=== PATIENT | female | born 1935 | race Caucasian/White ===

== ENCOUNTER 2017-02-19 13:31 | Inpatient (IN) | payer OTHER ==
[~2017-02-19] VITALS: Ht 165.1 cm; Wt 73.1 kg
--- NOTE | ~2017-02-19 | 2DMMODE ---
[facility] [address] [place] [address] 2 D/M-MODE ECHOCARDIOGRAM Name: DONOVAN SAMUEL Room #: 206-P ADM IN M.R.#: [id number] Admission: 02/19/17 Attend Phys: Roney Livingston, Discharge: Date of : 33 Date of Service: 02/20/17 1426 Report #: [id number] THIS REPORT FOR: //name// APPROVED REPORT Study performed: 02/20/2017 12:53:57 EXAM: Comprehensive 2D, Doppler, and color-flow Echocardiogram Patient Location: Bedside Room #: 206 Status: routine BSA: 1.75 HR: 71 bpm BP: 114/68 mmHg Rhythm: Pacemaker/Irregular Other Information Study Quality: Excellent Indications Pre-Op CABG. Hx: [place] stent, pacemaker. 2D Dimensions RVDd: 36.93 mm LVEF(%): 52.07 (>50%) IVSd: 1.20 (7-11mm) LVOT Diam: 19.65 (18-24mm) LVDd: 45.20 mm PWd: 1.20 (7-11mm) LVDs: 33.20 (25-40mm) Aortic Root: 29.32 mm Kim's LVEF: 52.07 % Volumes Left Atrial Volume (Systole) Single Plane 4CH: 44.43 mL Single Plane 2CH: 55.65 mL LA ESV Index: 31.00 mL/m2 Aortic Valve AoV Peak Ashvin.: 2.67 m/s AO Peak Gr.: 28.58 mmHg LVOT Max P.40 mmHg AO Mean Gr.: 16.16 mmHg AO V2 Mean: 1.94 m/s LVOT Max V: 1.16 m/s AO V2 VTI: 53.69 cm MARINE Vmax: 1.32 cm2 Mitral Valve [facility] [place] [address] 2 D/M-MODE ECHOCARDIOGRAM Name: DONOVAN SAMUEL Room #: 206-P [facility] IN M.R.#: [id number] Admission: 02/19/17 Attend Phys: Roney Livingston, Discharge: Date of : 33 Date of Service: 02/20/17 1426 Report #: [id number] E/A Ratio: 0.8 MV Decel. Time: 252.42 ms MV E Max Ashvin.: 0.92 m/s MV A Ashvin.: 1.10 m/s MV PHT: 73.20 ms IVRT: 124.57 ms Pulmonary Valve PV Peak Ashvin.: 0.98 m/s PV Peak Gr.: 3.86 mmHg Pulmonary Vein P Vein S: 0.59 m/s P Vein A: 0.29 m/s P Vein D: 0.50 m/s P Vein A Dur.: 106.1 msec P Vein S/D Ratio: 1.18 Tricuspid Valve TR Peak Ashvin.: 2.40 m/s RAP Estimate: 5.00 mmHg TR Peak Gr.: 23.10 mmHg PA Pressure: 28.00 mmHg Left Ventricle The left ventricle is normal size. moderate hypokinesis noted of the distal anteroseptal wall and apex Mild concentric left ventricular hypertrophy. Left ventricular systolic function is mildly decreased. LVEF is 45-50%. Mild diastolic dysfunction is present (impaired relaxation pattern). Right Ventricle The right ventricle is normal size. The right ventricular systolic function is normal. Pacemaker lead is present in the right ventricle. Atria Left atrium is mildly dilated. The right atrium size is normal. Aortic Valve Aortic valve is calcified. No aortic regurgitation is present. There is mild valvular aortic stenosis. Calculated aortic valve area is 1.4 cm2 with maximum pressure gradient 29 mmg Mitral Valve Mitral valve leaflets are mildly thickened. Moderate mitral annular calcification. Mild mitral regurgitation. No evidence of mitral valve stenosis. Tricuspid Valve [facility] [address] [place] [address] 2 D/M-MODE ECHOCARDIOGRAM Name: DONOVAN SAMUEL ANN Room #: 206-P [facility] IN M.R.#: [id number] Admission: 02/19/17 Attend Phys: Roney Livingston, Discharge: Date of : 33 Date of Service: 02/20/17 1426 Report #: [id number] The tricuspid valve is normal in structure. Mild to moderate tricuspid regurgitation. Estimated PAP is 28mmHg. Pulmonic Valve The pulmonary valve is normal in structure. Trace pulmonic regurgitation. Great Vessels The aortic root is normal in size. The ascending aorta is normal in size. IVC is normal in size and collapses >50% with inspiration. Pericardium There is no pericardial effusion. <Conclusion> LVEF is 45-50%. moderate hypokinesis noted of the distal anteroseptal wall and apex Left atrium is mildly dilated. . Calculated aortic valve area is 1.4 cm2 with maximum pressure gradient of 29 mmHg Mild aortic stenosis. Mild mitral regurgitation. <ELECTRONICALLY SIGNED> By: Anup Cohn MD, FACC 02/20/17 1426 142 142 Anup Cohn MD, FACC /INF
--- NOTE | ~2017-02-19 | EKG ---
[address] [address] ELECTROCARDIOGRAM REPORT Name: DONOVAN SAMUEL Room #: 241-P ADM IN M.R.#: [id number] Admission: 02/19/17 Attend Phys: Roney Livingston DO Discharge: Date of : 34 Report #: [id number] THIS REPORT FOR: //name// [facility] Test Date: 2017-02-21 Test Time: 13:12:07 Pat Name: DONOVAN SAMUEL Department: Room: 241 P Gender: F Architectural Model Maker: kiley : 1935 Requested By: Jacey Rivas Order Number: [id number] MD: Alexis Martin Measurements Intervals [place] Rate: 80 P: 75 [place]: 161 QRS: -85 QRSD: 158 T: 94 QT: 450 QTc: 520 Interpretive Statements Atrial-ventricular dual-paced rhythm No further analysis attempted due to paced rhythm Compared to ECG 02/19/2017 13:38:14 Atrial-sensed ventricular-paced complex(es) or rhythm no longer present Electronically Signed On 02-21-2017 13:36:13 COAL UNLOADER by Alexis Martin [email or web address] <ELECTRONICALLY SIGNED> By: Alexis Martin MD 02/21/17 1336 1312 1312 Alexis Martin MD /EPI
--- NOTE | ~2017-02-19 | HC ---
[facility] [place] [address] CONSULTATION Name: DONOVAN SAMUEL ANN Room #: 241-P ADM IN M.R.#: [id number] Admission: 02/19/17 Attend Phys: Roney Livingston DO Discharge: Date of : 34 Report #: [id number] THIS REPORT FOR: //name// CC: Roney Brambila MD DATE OF SERVICE: 02/20/2017 HISTORY OF PRESENT ILLNESS: The patient is an 81-year-old single white female who came to the emergency room last night complaining of chest pain. The patient apparently presented in 1999 with chest pain. She states she had a coronary stent placed in the [place], [place] after a myocardial infarction. She has done well since that time. Her last stress test was several years ago. In 2009, she had a dizzy spell. 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 She eventually underwent implantation of a pacemaker in 2009. I last saw her in the cardiology clinic apparently several months ago. She stays fairly active including bowling twice a week. For the past month, she has been having intermittent chest pressure. It is usually related to activity. Occasionally, it occurs at rest. It last up to half an hour. It can make her diaphoretic, goes down her arms. Yesterday, she had a brief episode of chest discomfort in the morning. Her family convinced her to come to the hospital. After she got here last night, she went to x-ray. There she had an episode of chest heaviness last about a half an hour, relieved with nitroglycerin. I was asked to see her for further evaluation and treatment. She denies exertional dyspnea, palpitations, syncope, fever, cough or bleeding. PAST MEDICAL HISTORY: Otherwise significant for appendectomy. She has a history of hyperlipidemia. MEDICATIONS: Include aspirin, lisinopril, and Zocor. ALLERGIES: To PENICILLIN. FAMILY HISTORY: Positive for heart disease. SOCIAL HISTORY: She is , lives in [place] by herself. Quit smoking years ago. No alcohol abuse. REVIEW OF SYSTEMS: She has had no history of stroke, asthma, peptic ulcer disease, liver disease, kidney disease, cancer, psychiatric illness, or chronic skin condition. PHYSICAL EXAMINATION: GENERAL: Revealed an elderly female who appeared in no distress. VITAL SIGNS: She had a blood pressure 140/70, pulse was 70. She was afebrile. [address] [address] CONSULTATION Name: DONOVAN SAMUEL Room #: 241-P [facility] IN ..#: [id number] Admission: 02/19/17 Attend Phys: Roney Livingston DO Discharge: Date of : 34 Report #: [id number] HEENT: She was anicteric, conjunctivae are pink. Mucous membranes are moist. NECK: Veins nondistended. Bilateral carotid bruits were heard. CHEST: Clear to auscultation. HEART: Regular rate and rhythm. No murmur. ABDOMEN: Soft, nontender. EXTREMITIES: Had no edema. Posterior tibial pulse 1+ bilaterally. SKIN: Cool and dry. ECG shows P-wave sensing and ventricular capture. Her workup last night in the emergency room, she had a chest x-ray that showed normal heart size. There was a density suggestive of a nipple artifact. She actually had a CT scan of the chest using a PE protocol last night that showed no pulmonary embolus, coronary calcifications or cardiomegaly. Her lab work, sodium 141, BUN 16, creatinine 0.7, glucose 114. Her troponin on admission was 0.69, this morning it is 1.96. Cholesterol 166, triglyceride 65, HDL 90, LDL 63. Her white blood cell count 10.1, and hemoglobin 16.8. IMPRESSION AND RECOMMENDATIONS: 1. Non-ST elevation myocardial infarction. Previous stent. Recommend cardiac catheterization. 2. Previous pacemaker insertion. 3. Hyperlipidemia. The patient is on a statin drug. 4. Previous tobacco abuse. 5. Carotid bruit. Previous Doppler apparently showed a mild stenosis. <ELECTRONICALLY SIGNED> By: Anup Cohn MD, [facility] 02/21/17 1444 0753 1116 Anup Cohn MD, FACC /nt
--- NOTE | ~2017-02-19 | O ---
[facility] [place] [address] OPERATIVE REPORT Name: DONOVAN SAMUEL ANN Room #: 241-P ADM IN M.R.#: [id number] Admission: 02/19/17 Attend Phys: Roney Livingston DO Discharge: Date of : 34 Report #: [id number] THIS REPORT FOR: //name// CC: Roney Brambila DATE OF SERVICE: 02/21/2017 PREOPERATIVE DIAGNOSES: 1. Coronary artery disease. 2. Non-ST segment elevation myocardial infarction. 3. Mildly decreased left ventricular systolic function. FINAL DIAGNOSES: 1. Coronary artery disease. 2. Non-ST segment elevation myocardial infarction. 3. Mildly decreased left ventricular systolic function. OPERATIVE PROCEDURE PERFORMED: 1. Coronary artery bypass grafting x 3 with left internal mammary artery to the LAD, radial artery graft to OM and saphenous vein graft to PDA. 2. Left radial artery harvest. SURGEON: Olivier Germain MD. FACIAL OPERATOR: UZAIR Pagan. ANESTHESIA: General. OPERATIVE INDICATIONS: The patient is an 81-year-old female with known history of coronary artery disease with prior stenting performed up in [place] in the distant past. She has now presented with recent history of exertional dyspnea who was admitted to the Emergency Room recently and found to have evidence of non-ST segment elevation NE. The patient has undergone evaluation showing evidence of a critical distal left main coronary artery stenosis as well as right coronary artery disease. She was brought to the operating room now for coronary artery bypass grafting after informed consent has been obtained. Preoperative echo showed EF approximately 40%-45%. DESCRIPTION OF PROCEDURE: The patient was brought in the operative room and placed on the OR table in supine position. After anesthesia was induced via the general endotracheal route and monitoring lines have been positioned, the patient was prepped and draped in sterile fashion with chlorhexidine. I first harvested radial artery from the left forearm using a Harmonic scalpel. Concomitantly, saphenous vein was harvested from left lower extremity using endoscopic techniques. I then performed a median sternotomy incision, left [facility] [address] [place] [address] OPERATIVE REPORT Name: DONOVAN SAMUEL Room #: 241-P [facility] IN M.R.#: [id number] Admission: 02/19/17 Attend Phys: Roney Livingston DO Discharge: Date of : 34 Report #: [id number] internal mammary artery was harvested in standard fashion. We opened the pericardium and systemically anticoagulated the patient with heparin. Cannulae were placed in ascending aorta and the right atrium. An antegrade cardioplegic cannula was positioned and cardiopulmonary bypass was begun. We attempted placement of a retrograde cardioplegic cannula; however, this was unsuccessful. Under low flow conditions, the aorta was crossclamped, the heart was arrested with approximately 1200 mL cold antegrade cardioplegia. This was augmented with topical ice slush. Diastolic arrest was achieved and maintained throughout this operation with intermittent dose of cold antegrade cardioplegia as well as topical ice slush. We first opened up the OM vessel, calcified vessel. We were able to find the soft spot. A distal anastomosis was carried out in end-to-side fashion with 7-0 Prolene utilizing a radial artery. We placed a little BioGlue on this site due to the tenuous nature of this anastomosis. The radial artery was brought around and was anastomosed to the ascending aorta with 7-0 Prolene after a 4.8 punch aortotomy was created. Next, we addressed the right coronary artery system. We found the right coronary artery to be completely calcified down to the bifurcation. We opened the proximal PDA. This was a good size vessel about 2 mm in size. The anastomosis was carried out in end-to-side fashion with 7-0 Prolene utilizing reverse saphenous vein graft. The vein graft was brought up to the ascending aorta, measured and cut and anastomosed to the aorta with a 6-0 Prolene after 4.8 punch aortotomy was created. Lastly, the JULIANA was brought onto the field. We dissected the LAD. We found a soft spot distally as the rest of the LAD was very calcified and unapproachable. Anastomosis was carried out from KELLEY to LAD with 7-0 Prolene and the pedicle was then tacked to the epicardium with 6-0 Prolene. Next, we gave warm cardioplegia in antegrade. We took care to deair the ascending aorta and the vein graft. Then, under low flow conditions, the aorta crossclamp was released to begin the period of reperfusion. The patient was rewarmed to 37 degree centigrade. We gave 3 successive doses of calcium and single dose of magnesium all over 3-5 minute intervals. The patient's [place] pacemaker was placed back in a DDD mode with a rate of 80. After suitable period of reperfusion, the lungs were reinflated. The patient was weaned from cardiopulmonary bypass on 2 mcg/kilo/min of dopamine. Protamine was given to reverse the heparin, decannulation was effected. Once satisfactory hemostasis was achieved, we placed two 32-Kittitian chest tubes in the anterior mediastinum and 24 Luis drain in left pleural space. They were all brought out through separate stab incisions. The sternum was closed with #7 wire. The fascia, subcutaneous and skin were closed in multiple layers with absorbable suture. The procedure was completed. The patient was taken to the CV ICU in stable condition. Cardiopulmonary bypass time and crossclamp time was not available to nc at the time of this dictation. By: 1255 1333 /nt
--- NOTE | ~2017-02-19 | EKG ---
[place] [address] [facility] [place] [address] ELECTROCARDIOGRAM REPORT Name: DONOVAN SAMUEL Room #: 241-P ADM IN M.R.#: [id number] Admission: 02/19/17 Attend Phys: Roney Livingston DO Discharge: Date of : 34 Report #: [id number] THIS REPORT FOR: //name// [facility] Test Date: 2017-02-22 Test Time: 08:42:26 Pat Name: DONOVAN SAMUEL Department: Room: 241 P Gender: F Beam Doffer: yoav : 1935 Requested By: Jacey Rivas Order Number: [id number] MD: Doni Metz Measurements Intervals [place] Rate: 80 P: 96 [place]: 167 QRS: -83 QRSD: 143 T: 102 QT: 411 QTc: 475 Interpretive Statements Atrial-ventricular dual-paced rhythm No further analysis attempted due to paced rhythm Compared to ECG 02/21/2017 13:12:07 No significant changes Electronically Signed On 02-22-2017 15:57:41 CELL BIOLOGIST by Doni Metz [email or web address] <ELECTRONICALLY SIGNED> By: Doni Metz MD, [facility] 02/22/17 1557 0842 0842 Doni Metz MD, [facility] /EPI
--- NOTE | ~2017-02-19 | EKG ---
[address] [address] ELECTROCARDIOGRAM REPORT Name: DONOVAN SAMUEL Room #: 206-P ADM IN M.R.#: [id number] Admission: 02/19/17 Attend Phys: Roney Livingston DO Discharge: Date of : 34 Report #: [id number] THIS REPORT FOR: //name// [facility] ED Test Date: 2017-02-19 Test Time: 13:38:14 Pat Name: DONOVAN SAMUEL Department: Room: 206 Gender: F Child Advocate: linus : 1935 Requested By: Nohemi Lau Order Number: [id number] MD: Alexis Martin Measurements Intervals [place] Rate: 95 P: 90 ND: 182 QRS: -81 QRSD: 156 T: 98 QT: 405 QTc: 509 Interpretive Statements Atrial-sensed ventricular-paced complexes No further analysis attempted due to paced rhythm Compared to ECG 12/01/2009 18:10:28 Sinus rhythm no longer present Electronically Signed On 02-19-2017 21:37:31 CLOCKMAKER by Alexis Martin [email or web address] <ELECTRONICALLY SIGNED> By: Alexis Martin MD 02/19/17 2137 1338 1338 Alexis Martin MD /EPI
--- NOTE | ~2017-02-19 | CATHLAB ---
[facility] [address] [place] [address] INVASIVE PROCEDURE REPORT Name: DONOVAN SAMUEL ANN Room #: 241-P ADM IN .R.#: [id number] Admission: 02/19/17 Attend Phys: Roney Livingston, Discharge: Date of : 34 Date of Service: 02/21/17 1327 Report #: [id number] THIS REPORT FOR: //name// APPROVED REPORT Patient Details Patient Status: In-Patient Room #: The patient is a 81 year-old female Event Personnel Anup Cohn Document Improvement Specialist, Butch Coats RN RN, Jennifer Paris Mahmood, Amber Monitor Procedures Performed Art Access - R femoral artery* [id number] Initial Mod Sed Same Phys/QHP Gr5y [id number] Left Heart Cath w/or w/o Coronaries [id number] [facility] Hemostasis w/ Mynx Indication Unstable angina Risk Factors Arterial Hypertension, Hypercholesterolemia Previous Procedures/Diagnoses Previous PCI Procedure Narrative The patient was brought urgently to the Cardiac Catheterization Laboratory and was prepped and draped in a sterile manner. The Right Groin^ was infiltrated with 1% Lidocaine subcutaneous anesthesia. A PINNACLE 6FR Sheath #[id number] sheath was inserted into the RFA^. Coronary angiography was performed using coronary diagnostic catheters. The right coronary system was accessed and visualized with a JR 4 catheter. The left coronary system was accessed and visualized with a JL 4 catheter. The left ventricle was accessed and visualized with a Pigtail catheter. Left ventricular/Aortic Valve gradient assessed via catheter pullback. Left ventriculogram was performed in NERI projection. Pre-demployment femoral angiogram was performed . Closure device was deployed with a 6 Fr Mynx. The patient tolerated the procedure well and there were no complications associated with the procedure. There was no hematoma. Intraoperative Conscious Sedation Sedation start time: 07:59 Case end Time: [facility] [address] [place] [address] INVASIVE PROCEDURE REPORT Name: DONOVAN SAMUEL Room #: 241-P [facility] IN ..#: [id number] Admission: 02/19/17 Attend Phys: Roney Livingston, Discharge: Date of : 34 Date of Service: 02/21/17 1327 Report #: [id number] 08:27 Fluoro Time: 1.95 minutes Dose: DAP 2887.65 cGycm2 403 mGy Contrast Type and Amount: Omnipaque 105 ml Coronary Angiography The patient's coronary anatomy is right dominant. [place] Artery Percent Stenosis Left Main: 80 % Prox LAD: 0 % Mid/Distal LAD: 0 % Circumflex: 70 % RCA: 80 % Ramus: %Left main artery had a distal eccentric 80% stenosis. Circumflex had a proximal 70% stenosis. RCA had a proximal 80% stenosis. There was a stent in the mid RCA with 30% restenosis. There was a 60% stenosis in the mid RCA beyond the stent Left Ventriculography The left ventricular ejection fraction is estimated to be 45-50%. Left ventricular wall motion abnormalities are present. There is 1+ mitral insufficiency. Moderate hypokinesis noted of the distal anteroapical wall of the left ventricle Hemodynamics The aortic pressure is 114/66 mmHg with a mean of 85 mmHg. The left ventricular pressure is 136/8 mmHg with a mean of mmHg. The left ventricular end diastolic pressure is 15 mmHg. There was no gradient across the aortic valve upon pullback. Pullback from the left ventricle to the aorta revealed no gradient across the aortic valve. Conclusion 1. Severe stenosis noted of the left main artery, proximal circumflex, and proximal RCA 2. No significant restenosis of the stent in the mid rca Recommendations CABG <ELECTRONICALLY SIGNED> By: Anup Cohn MD, FACC 02/21/17 1327 26 132 Anpu Cohn MD, FACC /INF
[~2017-02-19 13:31] MED LIST: ASPIRIN325 PO; LISINOPRIL10 MG PO; OMEGA-3100 MG PO; PREMPRO 0.625-1 EACH PO; SIMVASTATIN20 MG PO
[2017-02-19 13:32] VITALS: BP 166/98
[2017-02-19 13:49] LABS: ABSOLUTE NEUTROPHILS 6.1 thou/uL (1.4-8.2); BASOPHILS 0.2 % (0.0-2.0); EOSINOPHILS 2.2 % (0.0-3.0); HEMATOCRIT 49.1 % (37.0-47.0); HEMOGLOBIN 16.8 gm/dL (12.0-15.0); LYMPHOCYTES 28.1 % (24.0-44.0); MCH 31.8 pg (26.0-34.0); MCHC 34.3 g/dL (28.0-37.0); MCV 92.8 fL (80.0-100.0); PLATELET COUNT 216 thou/uL (150-400); POLYS 60.5 % (36.0-66.0); RBC 5.29 mil/uL (4.20-5.00); RDW 13.9 % (10.5-14.5); WBC 10.1 thou/uL (4.0-11.0)
[2017-02-19 13:52] LABS: MANUAL DIFF NO
[2017-02-19] MEDS ORDERED: METFORMIN HCL500 MG PO (13:55)
[2017-02-19 14:06] LABS: CALCIUM 10.4 mg/dL (8.5-10.1); CREATININE 0.7 mg/dL (0.6-1.0)
[2017-02-19 14:10] LABS: TROPONIN-I 0.69 ng/mL (<0.06)
[2017-02-19 14:31] LABS: APTT 25.2 Seconds (24.5-32.8); PROTIME 9.7 Seconds (9.3-11.4)
[2017-02-19 14:55] VITALS: BP 157/90
[2017-02-19 20:05] VITALS: BP 123/76
[2017-02-19 22:47] VITALS: BP 115/73
[2017-02-20] VITALS (14 sets, daily range): BP systolic 103–132; BP diastolic 61–86
[2017-02-20 04:22] LABS: CHOLESTEROL 166 mg/dL (<200); HDL CHOLESTEROL 90 mg/dL (>40); LDL CHOLESTEROL 63 mg/dL (<100); TC:HDL 1.8 Ratio (Not establshd); TRIGLYCERIDE 65 mg/dL (<150); VLDL 13 mg/dL (<40)
[2017-02-20 04:35] LABS: SERUM ASSESSMENT Clear
[2017-02-20 16:46] LABS: URINE BILIRUBIN NEGATIVE (Negative); URINE BLOOD 2+ (Negative); URINE COLOR YELLOW; URINE GLUCOSE-RANDOM* NEGATIVE (Negative); URINE KETONES NEGATIVE (Negative); URINE LEUKOCYTES-REFLEX NEGATIVE (Negative); URINE PROTEIN (DIPSTICK) NEGATIVE (Negative); URINE UROBILINOGEN 0.2 E.U./dl (0.2-1.0)
[2017-02-20 17:02] LABS: CASTS None Seen /LPF (None Seen); CRYSTALS None Seen /LPF (None Seen); SQUAMOUS None Seen /LPF (0-3); URINE RBC 0-2 Rare /HPF (0-2); URINE WBC-REFLEX None Seen /HPF (0-5)
[2017-02-21] VITALS (13 sets, daily range): BP systolic 93–144; BP diastolic 54–86
[2017-02-21 01:08] LABS: GLYCOHEMOGLOBIN (HGB A1C) 5.6 % (4.8-5.6)
[2017-02-21 03:30] LABS: ABSOLUTE NEUTROPHILS 4.8 thou/uL (1.4-8.2); BASOPHILS 0.3 % (0.0-2.0); EOSINOPHILS 3.1 % (0.0-3.0); HEMATOCRIT 43.2 % (37.0-47.0); LYMPHOCYTES 25.9 % (24.0-44.0); MCH 30.9 pg (26.0-34.0); MCHC 33.1 g/dL (28.0-37.0); MCV 93.4 fL (80.0-100.0); MONOCYTES 10.2 % (1.0-8.0); PLATELET COUNT 178 thou/uL (150-400); POLYS 60.5 % (36.0-66.0); RBC 4.62 mil/uL (4.20-5.00); RDW 13.9 % (10.5-14.5)
[2017-02-21 03:42] LABS: HEMOGLOBIN 14.3 gm/dL (12.0-15.0)
[2017-02-21 03:43] LABS: MANUAL DIFF NO
[2017-02-21 03:53] LABS: PROTIME 9.8 Seconds (9.3-11.4)
[2017-02-21 04:00] LABS: CALCIUM 8.7 mg/dL (8.5-10.1); CREATININE 0.6 mg/dL (0.6-1.0); POTASSIUM 4.3 mmol/L (3.5-5.1); TOTAL BILIRUBIN 0.4 mg/dL (<0.1-1.0); TOTAL PROTEIN 5.9 g/dL (6.4-8.2)
[2017-02-21 11:56] LABS: MCH 32.1 pg (26.0-34.0); MCHC 34.9 g/dL (28.0-37.0); MCV 92.1 fL (80.0-100.0); RBC 3.14 mil/uL (4.20-5.00); RDW 13.6 % (10.5-14.5); WBC 13.9 thou/uL (4.0-11.0)
[2017-02-21 11:59] LABS: HEMATOCRIT 28.9 % (37.0-47.0); HEMOGLOBIN 10.1 gm/dL (12.0-15.0)
[2017-02-21 12:12] LABS: APTT 25.7 Seconds (24.5-32.8); FIBRINOGEN 168.6 mg/dL (210-360); PROTIME 12.6 Seconds (9.3-11.4)
[2017-02-21 12:14] LABS: INR 1.2
[2017-02-21 12:37] LABS: POC BE 1 mmol/L (-2.0 to +3.0); POC CA IONIZED 4.7 mg/dL (4.5-5.3); POC FiO2 100 %; POC GLUCOSE 144 mg/dL (70-99); POC HCO3 26.7 mmol/L (22.0-26.0); POC HEMOGLOBIN 12.9 g/dL (12.0-15.0); POC SODIUM 139 mmol/L (136-145); POC pCO2 45.9 mmHg (35.0-45.0); POC pH 7.373 (7.360-7.450)
[2017-02-21 12:37] LABS: POC BE 6 mmol/L (-2.0 to +3.0); POC CA IONIZED 4.8 mg/dL (4.5-5.3); POC FiO2 100 %; POC GLUCOSE 126 mg/dL (70-99); POC HCO3 28.8 mmol/L (22.0-26.0); POC HEMOGLOBIN 14.3 g/dL (12.0-15.0); POC POTASSIUM 4.2 mmol/L (3.5-5.1); POC SODIUM 138 mmol/L (136-145); POC pCO2 34.8 mmHg (35.0-45.0); POC pH 7.526 (7.360-7.450)
[2017-02-21 12:37] LABS: POC BE 5 mmol/L (-2.0 to +3.0); POC CA IONIZED 4.3 mg/dL (4.5-5.3); POC FiO2 100 %; POC GLUCOSE 135 mg/dL (70-99); POC HCO3 28.7 mmol/L (22.0-26.0); POC HEMOGLOBIN 10.2 g/dL (12.0-15.0); POC POTASSIUM 4.5 mmol/L (3.5-5.1); POC SODIUM 138 mmol/L (136-145); POC pCO2 39.5 mmHg (35.0-45.0)
[2017-02-21 12:37] LABS: POC BE 4 mmol/L (-2.0 to +3.0); POC FiO2 100 %; POC GLUCOSE 141 mg/dL (70-99); POC HCO3 28.1 mmol/L (22.0-26.0); POC HEMOGLOBIN 10.2 g/dL (12.0-15.0); POC POTASSIUM 4.6 mmol/L (3.5-5.1); POC SODIUM 136 mmol/L (136-145); POC pCO2 41.9 mmHg (35.0-45.0); POC pH 7.434 (7.360-7.450)
[2017-02-21 12:37] LABS: POC BE 0 mmol/L (-2.0 to +3.0); POC CA IONIZED 7.1 mg/dL (4.5-5.3); POC FiO2 100 %; POC GLUCOSE 116 mg/dL (70-99); POC HCO3 23.9 mmol/L (22.0-26.0); POC HEMOGLOBIN 12.2 g/dL (12.0-15.0); POC POTASSIUM 4.3 mmol/L (3.5-5.1); POC SODIUM 139 mmol/L (136-145); POC pCO2 32.2 mmHg (35.0-45.0); POC pH 7.479 (7.360-7.450)
[2017-02-21 12:37] LABS: POC BE -1 mmol/L (-2.0 to +3.0); POC CA IONIZED 4.2 mg/dL (4.5-5.3); POC FiO2 100 %; POC GLUCOSE 139 mg/dL (70-99); POC HCO3 23.6 mmol/L (22.0-26.0); POC HEMOGLOBIN 10.5 g/dL (12.0-15.0); POC POTASSIUM 4.6 mmol/L (3.5-5.1); POC SODIUM 137 mmol/L (136-145); POC pCO2 38.5 mmHg (35.0-45.0); POC pH 7.396 (7.360-7.450)
[2017-02-21 12:37] LABS: POC BE 4 mmol/L (-2.0 to +3.0); POC CA IONIZED 4.4 mg/dL (4.5-5.3); POC FiO2 100 %; POC GLUCOSE 127 mg/dL (70-99); POC HCO3 28.1 mmol/L (22.0-26.0); POC HEMOGLOBIN 9.9 g/dL (12.0-15.0); POC POTASSIUM 4.8 mmol/L (3.5-5.1); POC SODIUM 139 mmol/L (136-145); POC pCO2 40.4 mmHg (35.0-45.0); POC pH 7.449 (7.360-7.450)
[2017-02-21 12:37] LABS: POC BE 3 mmol/L (-2.0 to +3.0); POC CA IONIZED 7.9 mg/dL (4.5-5.3); POC FiO2 100 %; POC GLUCOSE 108 mg/dL (70-99); POC HCO3 25.8 mmol/L (22.0-26.0); POC HEMOGLOBIN 9.2 g/dL (12.0-15.0); POC POTASSIUM 4.6 mmol/L (3.5-5.1); POC SODIUM 137 mmol/L (136-145); POC pCO2 33.1 mmHg (35.0-45.0)
[2017-02-21 13:00] LABS: ABG SAMPLE TYPE ARTERIAL; BE(vivo) -2.4 mmol/L (-2 to +3); HCO3 22.4 mmol/L (22.0-26.0); LACTATE 1.38 mmol/L (0.5-2.0); O2(CT) 20.5 mL/dL (15.0-23.0); O2Hb 96.4 % (92.0-98.0); STICK SITE LINE; TIDAL VOLUME 500 ml; pH 7.377 (7.360-7.450); sO2 97.4 % (92.0-98.0); tCO2 23.6 mmol/L (24.0-30.0)
[2017-02-21 13:13] LABS: MCH 31.5 pg (26.0-34.0); MCHC 33.6 g/dL (28.0-37.0); MCV 93.6 fL (80.0-100.0); RBC 4.49 mil/uL (4.20-5.00); RDW 13.9 % (10.5-14.5); WBC 21.9 thou/uL (4.0-11.0)
[2017-02-21 13:17] LABS: HEMOGLOBIN 14.1 gm/dL (12.0-15.0)
[2017-02-21 13:22] LABS: CALCIUM 12.1 mg/dL (8.5-10.1); CREATININE 0.6 mg/dL (0.6-1.0)
[2017-02-21 13:23] LABS: MAGNESIUM 2.9 mg/dL (1.8-2.4)
[2017-02-21 13:28] LABS: PROTIME 10.7 Seconds (9.3-11.4)
[2017-02-21 13:30] LABS: APTT 20.7 Seconds (24.5-32.8)
[2017-02-21 15:19] LABS: ABG SAMPLE TYPE ARTERIAL; BE(vivo) -4.2 mmol/L (-2 to +3); HCO3 22.5 mmol/L (22.0-26.0); LACTATE 1.49 mmol/L (0.5-2.0); O2(CT) 19.3 mL/dL (15.0-23.0); O2Hb 95.6 % (92.0-98.0); PCO2 47.4 mmHg (35.0-45.0); PO2 100.1 mmHg (80.0-100.0); sO2 96.9 % (92.0-98.0)
[2017-02-21 15:20] LABS: Pressure Support 6 cm H20; STICK SITE LINE; pH 7.295 (7.360-7.450)
[2017-02-21 16:34] LABS: ABG SAMPLE TYPE ARTERIAL; BE(vivo) -4.9 mmol/L (-2 to +3); HCO3 21.4 mmol/L (22.0-26.0); LACTATE 1.45 mmol/L (0.5-2.0); O2(CT) 19.2 mL/dL (15.0-23.0); O2Hb 96.1 % (92.0-98.0); PCO2 44.1 mmHg (35.0-45.0); PO2 105.5 mmHg (80.0-100.0); Pressure Support 6 cm H20; STICK SITE LINE; pH 7.303 (7.360-7.450); sO2 97.3 % (92.0-98.0); tCO2 22.7 mmol/L (24.0-30.0)
[2017-02-21 17:59] LABS: ABG SAMPLE TYPE ARTERIAL; BE(vivo) -2.8 mmol/L (-2 to +3); HCO3 24.3 mmol/L (22.0-26.0); LACTATE 1.48 mmol/L (0.5-2.0); O2(CT) 18.9 mL/dL (15.0-23.0); O2Hb 96.7 % (92.0-98.0); PCO2 51.6 mmHg (35.0-45.0); PO2 111.5 mmHg (80.0-100.0); sO2 97.5 % (92.0-98.0); tCO2 25.9 mmol/L (24.0-30.0)
[2017-02-21 18:00] LABS: Pressure Support 6 cm H20; STICK SITE LINE; pH 7.291 (7.360-7.450)
[2017-02-21 19:34] LABS: ABG SAMPLE TYPE ARTERIAL; BE(vivo) -3.9 mmol/L (-2 to +3); HCO3 22.5 mmol/L (22.0-26.0); LACTATE 1.38 mmol/L (0.5-2.0); O2(CT) 18.5 mL/dL (15.0-23.0); O2Hb 96.4 % (92.0-98.0); PCO2 45.8 mmHg (35.0-45.0); PO2 102.7 mmHg (80.0-100.0); STICK SITE LINE; sO2 97.2 % (92.0-98.0); tCO2 23.9 mmol/L (24.0-30.0)
[2017-02-21 19:35] LABS: ABG COMMENT 1HR. POST EXTUB.; Face Shield 40 %; pH 7.309 (7.360-7.450)
[2017-02-22] VITALS (15 sets, daily range): BP systolic 77–146; BP diastolic 49–81
[2017-02-22 05:27] LABS: ABG SAMPLE TYPE ARTERIAL; BE(vivo) -2.6 mmol/L (-2 to +3); HCO3 23.4 mmol/L (22.0-26.0); LACTATE 1.56 mmol/L (0.5-2.0); O2(CT) 17.8 mL/dL (15.0-23.0); O2Hb 94.9 % (92.0-98.0); PCO2 45.1 mmHg (35.0-45.0); PO2 86.4 mmHg (80.0-100.0); STICK SITE R.BRACHIAL; pH 7.333 (7.360-7.450); sO2 95.9 % (92.0-98.0); tCO2 24.8 mmol/L (24.0-30.0)
[2017-02-22 06:16] LABS: HEMOGLOBIN 12.3 gm/dL (12.0-15.0); MCH 31.7 pg (26.0-34.0); MCHC 33.2 g/dL (28.0-37.0); MCV 95.6 fL (80.0-100.0); RBC 3.87 mil/uL (4.20-5.00); RDW 14.1 % (10.5-14.5); WBC 14.7 thou/uL (4.0-11.0)
[2017-02-22 06:28] LABS: CREATININE 0.6 mg/dL (0.6-1.0); POTASSIUM 4.7 mmol/L (3.5-5.1)
[2017-02-22 06:31] LABS: CALCIUM 9.1 mg/dL (8.5-10.1)
[2017-02-22 06:52] LABS: PROTIME 10.7 Seconds (9.3-11.4)
[2017-02-23 05:53] LABS: HEMOGLOBIN 11.8 gm/dL (12.0-15.0); MCH 31.8 pg (26.0-34.0); MCHC 33.8 g/dL (28.0-37.0); MCV 94.2 fL (80.0-100.0); RBC 3.71 mil/uL (4.20-5.00); RDW 13.9 % (10.5-14.5); WBC 12.9 thou/uL (4.0-11.0)
[2017-02-23 06:00] LABS: CALCIUM 8.8 mg/dL (8.5-10.1); CREATININE 0.6 mg/dL (0.6-1.0); POTASSIUM 4.4 mmol/L (3.5-5.1)
[2017-02-23 16:01] VITALS: BP 98/61
[2017-02-23 17:00] VITALS: BP 117/74
[2017-02-23 20:30] VITALS: BP 122/83
[2017-02-24 00:13] VITALS: BP 106/67
[2017-02-24 03:11] VITALS: BP 108/68
[2017-02-24 07:39] VITALS: BP 114/74
[2017-02-24 15:34] VITALS: BP 122/70
[2017-02-24 19:30] VITALS: BP 121/68
[2017-02-25 03:58] VITALS: BP 124/73
[2017-02-25 08:01] VITALS: BP 123/67
[2017-02-25 08:04] VITALS: BP 121/68
[2017-02-25 11:45] VITALS: BP 108/71
[2017-02-25 15:50] VITALS: BP 130/72
[2017-02-25 20:15] VITALS: BP 118/67
[2017-02-26] VITALS (7 sets, daily range): BP systolic 109–131; BP diastolic 54–73
[2017-02-26 03:25] LABS: CALCIUM 8.4 mg/dL (8.5-10.1); CREATININE 0.6 mg/dL (0.6-1.0); POTASSIUM 3.8 mmol/L (3.5-5.1)
[2017-02-27 04:15] VITALS: BP 127/69
[2017-02-27 07:00] VITALS: BP 111/58
[2017-02-27 08:15] VITALS: BP 111/58
[2017-02-27] MEDS ORDERED: PRADAXA150 MG PO (09:39)
[2017-02-27] MEDS ORDERED: PACERONE 200 M200 M1 PO (09:39)
[2017-02-27] MEDS ORDERED: LOPRESSOR25 PO (09:40)
[2017-02-27] MEDS ORDERED: CARDIZEM CD120 MG PO (09:40)
[2017-02-27] MEDS ORDERED: LASIX 20 MG TAB20 MG PO (09:41)
[2017-02-27] MEDS ORDERED: ADULT LOW DOSE81 MG PO (09:41)
[2017-02-27 10:07] VITALS: BP 111/58
[2017-02-27] MEDS ORDERED: LIPITOR40 MG PO (10:26)
== END 2017-02-27 12:20 | disposition home health service (06) | DRG 234 ==
LOC: ER 13:31 → EROBS 14:30 → 2N 14:30 → ICU 02-21 10:40 → 2N 02-23 18:57 → ENTRNSPT 02-27 12:12 → EDTRNSPTSTS 02-27 12:14 → 2N 02-27 12:20
PROVIDERS: Emergency Medicine; Family Medicine; Internal Medicine Cardiovascular Disease; Nurse Practitioner; Thoracic Surgery (Cardiothoracic Vascular Surgery)
PROC: 02100Z9 Bypass Coronary Artery, One Artery from Left Internal Mammary, Open Approach (ICD-10-PCS; principal; 2017-02-21)
PROC: 4A023N7 Measurement of Cardiac Sampling and Pressure, Left Heart, Percutaneous Approach (ICD-10-PCS; 2017-02-21)
PROC: 02110AW Bypass Coronary Artery, Two Arteries from Aorta with Autologous Arterial Tissue, Open Approach (ICD-10-PCS; 2017-02-21)
PROC: B2111ZZ Fluoroscopy of Multiple Coronary Arteries using Low Osmolar Contrast (ICD-10-PCS; 2017-02-21)
PROC: B2151ZZ Fluoroscopy of Left Heart using Low Osmolar Contrast (ICD-10-PCS; 2017-02-21)
PROC: 5A1221Z Performance of Cardiac Output, Continuous (ICD-10-PCS; 2017-02-21)
PROC: 06BQ4ZZ Excision of Left Saphenous Vein, Percutaneous Endoscopic Approach (ICD-10-PCS; 2017-02-21)
PROC: 03BC4ZZ Excision of Left Radial Artery, Percutaneous Endoscopic Approach (ICD-10-PCS; 2017-02-21)
PROC: 4A133J1 Monitoring of Arterial Pulse, Peripheral, Percutaneous Approach (ICD-10-PCS; 2017-02-21)
PROC: 03HY32Z Insertion of Monitoring Device into Upper Artery, Percutaneous Approach (ICD-10-PCS; 2017-02-21)
PROC: 4A133B1 Monitoring of Arterial Pressure, Peripheral, Percutaneous Approach (ICD-10-PCS; 2017-02-21)
DX: I21.4 Non-ST elevation (NSTEMI) myocardial infarction (principal); I44.2 Atrioventricular block, complete; E78.5 Hyperlipidemia, unspecified; I25.110 Atherosclerotic heart disease of native coronary artery with unstable angina pectoris; F17.210 Nicotine dependence, cigarettes, uncomplicated; R09.89 Other specified symptoms and signs involving the circulatory and respiratory systems; I48.0 Paroxysmal atrial fibrillation; I11.0 Hypertensive heart disease with heart failure; I50.9 Heart failure, unspecified; E11.51 Type 2 diabetes mellitus with diabetic peripheral angiopathy without gangrene; Z98.41 Cataract extraction status, right eye; Z90.49 Acquired absence of other specified parts of digestive tract; Z82.49 Family history of ischemic heart disease and other diseases of the circulatory system; Z95.0 Presence of cardiac pacemaker; Z98.42 Cataract extraction status, left eye; Z95.5 Presence of coronary angioplasty implant and graft; Z79.899 Other long term (current) drug therapy; Z79.82 Long term (current) use of aspirin; Z88.0 Allergy status to penicillin
CPT/HCPCS: 10081; 10203; 47000; 47001; 47002; 47297; 48888; 50010; 50249; 50318; 50409; 50456; 50497; 50662; 50668; 51301; 52131; 52190; 52314; 53327; 53358; 56524; 56525; 56526; 56527; 56528; 56529; 56531; 56534; 62110; 62950; 83006

== ENCOUNTER → 2017-03-19 | Outpatient (CLI) | payer OTHER ==
[~2017-03-19] MED LIST changes: +ADULT LOW DOSE81 MG PO; +CARDIZEM CD120 MG PO; +LASIX 20 MG TAB20 MG PO; +LIPITOR40 MG PO; +LOPRESSOR25 PO; +METFORMIN HCL500 MG PO; +PACERONE 200 M200 M1 PO; +PRADAXA150 MG PO
== END ==
LOC: RAD 08:29
DX: J90 Pleural effusion, not elsewhere classified (principal); J98.11 Atelectasis; Z95.1 Presence of aortocoronary bypass graft

== ENCOUNTER 2020-07-11 06:39 | Inpatient (IN) | payer MEDICARE ==
[2020-07-11] VITALS (9 sets, daily range): BP systolic 71–147; BP diastolic 43–83
[~2020-07-11] VITALS: Ht 165.1 cm; Wt 60.1 kg
[2020-07-11] MEDS ORDERED: SIMVASTATIN80 MG PO (07:07)
[2020-07-11 07:08] LABS: ABSOLUTE NEUTROPHILS 5.2 thou/uL (1.4-8.2); BASOPHILS 0.6 % (0.0-2.0); EOSINOPHILS 1.7 % (0.0-3.0); HEMATOCRIT 41.1 % (37.0-47.0); HEMOGLOBIN 13.9 gm/dL (12.0-15.0); LYMPHOCYTES 18.8 % (24.0-44.0); MCH 30.9 pg (26.0-34.0); MCHC 33.8 g/dL (28.0-37.0); MCV 91.4 fL (80.0-100.0); POLYS 69.9 % (36.0-66.0); RDW 14.1 % (10.5-14.5); WBC 7.4 thou/uL (4.0-11.0)
[2020-07-11] MEDS ORDERED: preservision PO (07:08)
[2020-07-11] MEDS ORDERED: CALTRATE PO (07:09)
[2020-07-11 07:29] LABS: ANION GAP 9 mmol/L (7-16); BUN 19 mg/dL (7-18); CALCIUM 8.8 mg/dL (8.5-10.1); CHLORIDE 105 mmol/L (98-107); CO2 26 mmol/L (21-32); CREATININE 0.7 mg/dL (0.6-1.0); GLUCOSE 129 mg/dL (74-106); SODIUM 140 mmol/L (136-145)
[2020-07-11 07:30] LABS: POTASSIUM 5.1 mmol/L (3.5-5.1)
[2020-07-11 07:39] LABS: ALBUMIN 3.1 g/dL (3.4-5.0); SGOT 82 U/L (15-37); SGPT 67 U/L (30-65); TOTAL BILIRUBIN 0.7 mg/dL (0.2-1.0); TOTAL PROTEIN 6.6 g/dL (6.4-8.2); TROPONIN-I <0.06 ng/mL (<0.06)
[2020-07-11 08:52] LABS: LARGE PLATELETS OCCASIONAL; PLATELET COUNT 195 thou/uL (150-400)
[2020-07-11 10:11] LABS: CHOLESTEROL 140 mg/dL (<200); HDL CHOLESTEROL 77 mg/dL (>40); LDL CHOLESTEROL 52 mg/dL (<100); TC:HDL 1.8 Ratio (Not establshd); TRIGLYCERIDE 55 mg/dL (<150); VLDL 11 mg/dL (<40)
[2020-07-11 10:47] LABS: URINE BILIRUBIN NEGATIVE (Negative); URINE BLOOD TRACE (Negative); URINE CLARITY CLEAR; URINE COLOR YELLOW; URINE GLUCOSE-RANDOM* NEGATIVE (Negative); URINE KETONES NEGATIVE (Negative); URINE LEUKOCYTES-REFLEX NEGATIVE (Negative); URINE NITRITE-REFLEX NEGATIVE (Negative); URINE PROTEIN (DIPSTICK) TRACE (Negative); URINE SPECIFIC GRAVITY 1.015 (1.005-1.035); URINE UROBILINOGEN 0.2 E.U./dl (0.2-1.0)
--- NOTE | 2020-07-11 15:15 | EKG ---
[place] [address] [facility] [address] ELECTROCARDIOGRAM REPORT Name: DONOVAN SAMUEL Room #: 208-P ADM IN M.R.#: [id number] Admission: 07/11/20 Attend Phys: Piedad Slater MD Discharge: Date of : 34 Report #: [id number] [facility] ED Test Date: 2020-07-11 Test Time: 06:49:18 Pat Name: DONOVAN SAMUEL Department: Room: 208 Gender: F Ice Cream Freezer Assistant: unknown : 1935 Requested By: Randa Johnson Order Number: [id number] MD: Ryne Wiggins Measurements Intervals [place] Rate: 89 P: 70 [place]: 156 QRS: -81 QRSD: 177 T: 108 QT: 427 QTc: 520 Interpretive Statements Atrial-sensed ventricular-paced rhythm No further analysis attempted due to paced rhythm Compared to ECG 02/22/2017 08:42:26 AV dual-paced complex(es) or rhythm no longer present Electronically Signed On 07-11-2020 15:15:31 CDT by Ryne Wiggins [email or web address] <ELECTRONICALLY SIGNED> By: Ryne Wiggins MD, [facility] 07/11/20 1515 0649 0649 Ryne Wiggins MD, [facility]
--- NOTE | 2020-07-11 17:32 | NUR ---
[age] OLD FEMALE ADMITTED TO [facility] ROOM 208. PT WAS BROUGHT INTO THE ER PER MAST DUE TO HAVING CHEST PAIN THAT STARTED AT O400AM. PT ALERT AND ORIENTED TIMES FOUR. VSS. O2 2L. PT DENEIS PAIN DURING ADMISSION ASSESSMENT. PT TOLERATES MEDS AND MEALS. PT UP TO BSC WITH STANDBY ASSIST. PT DAUGHTER AND SON IN [place] AT BEDSIDE DURING ADMISSION. WILL CONTINUE TO MONITOR.
--- NOTE | 2020-07-12 01:29 | NUR ---
ASSUMMED PT CARE AT CHANGE OF SHIFT, PT IS AWAKE, ALERT AND ORIENTEDX4, ASSESSMENTS CHARTED, VPACED ON THE MONITOR, DENIES CHEST PAIN, BP LOW 70S SYSTOLIC, WEB SITE MANAGER NOTIFIED, 250ML NS BOLUS GIVEN, BP BTTER IN THE 80S SYSTOLIC, PT IS ASYMPTOMATIC, WEB SITE MANAGER NOTIFIED, NO ORDERS RECEIVED, WILL MONITOR CLOSELY, MEDS GIVEN PER MAY, NO NEEDS AT THIS TIME
[2020-07-12 03:40] VITALS: BP 83/50
[2020-07-12 05:46] LABS: CREATININE 0.9 mg/dL (0.6-1.0); MAGNESIUM 2.1 mg/dL (1.8-2.4); POTASSIUM 4.5 mmol/L (3.5-5.1)
[2020-07-12 07:59] VITALS: BP 90/49
[2020-07-12 09:21] LABS: ABSOLUTE NEUTROPHILS 5.7 thou/uL (1.4-8.2); BASOPHILS 0.1 % (0.0-2.0); HEMATOCRIT 39.1 % (37.0-47.0); LYMPHOCYTES 12.3 % (24.0-44.0); MCH 30.8 pg (26.0-34.0); MCHC 33.3 g/dL (28.0-37.0); MCV 92.5 fL (80.0-100.0); MONOCYTES 7.2 % (1.0-8.0); POLYS 80.4 % (36.0-66.0); RBC 4.23 mil/uL (4.20-5.00); WBC 7.1 thou/uL (4.0-11.0)
--- NOTE | 2020-07-12 09:21 | EKG ---
[place] [address] [facility] [place] [address] ELECTROCARDIOGRAM REPORT Name: ANILDONOVAN Room #: 208-P ADM IN M.R.#: [id number] Admission: 07/11/20 Attend Phys: Piedad Slater MD Discharge: Date of : 34 Report #: [id number] [facility] Test Date: 2020-07-12 Test Time: 08:40:54 Pat Name: DONOVAN SAMUEL Department: Room: 208 P Gender: F Dependency Case Manager: PILAR : 1935 Requested By: Doni Metz Order Number: [id number] MD: Doni Metz Measurements Intervals [place] Rate: 84 P: 36 [place]: 160 QRS: -80 QRSD: 176 T: 102 QT: 442 QTc: 523 Interpretive Statements Atrial-sensed ventricular-paced rhythm No further analysis attempted due to paced rhythm Compared to ECG 07/11/2020 06:49:18 No significant changes Electronically Signed On 07-12-2020 9:21:07 CDT by Doni Metz [email or web address] <ELECTRONICALLY SIGNED> By: Doni Metz MD, [facility] 07/12/20920 9 9 Doni Metz MD, [facility] /EPI
[2020-07-12 11:20] LABS: PLATELET COUNT 200 thou/uL (150-400); PLATELET ESTIMATE NORMAL
[2020-07-12 11:21] LABS: LARGE PLATELETS OCCASIONAL
[2020-07-12 15:59] VITALS: BP 127/91
--- NOTE | 2020-07-12 16:18 | NUR ---
Assume patient care at 4:10pm.
--- NOTE | 2020-07-12 16:37 | NUR ---
Met with patient who admits with chest pain. Patient indepedent with adls and self care. She does not use any assistice device. She cont to drive. Lives in independent home with all needs on one level. She does not use oxygen at home. Requested RT wean and updated RN. Patient reports dtr lives in [place] is supportive. She is in [employer] league that bowls twice a week. [email or web address] following for dc planning. PCP Dr Rafael Giordano.
--- NOTE | 2020-07-12 16:42 | NUR ---
Patient O2 is 95 on room air, agreed not to wear nasal cannual.
[2020-07-12 20:05] VITALS: BP 113/64
[2020-07-13] VITALS (15 sets, daily range): BP systolic 95–121; BP diastolic 55–77
--- NOTE | 2020-07-13 04:04 | NUR ---
ASSUME CARE 1900. PT/VITALS STABLE. DENEIS ANY PAIN. GOOD ACTIVITY ENDURANCE. ASSESSMENT CHARTED. PROGRESSING WELL WITH POC. DENIES ANY CHEST PAIN./ NO DISTRESS NOTED THROUGH THE NIGHT. PLAN IS POSSIBLE CARDIAC CATHERIZATION TODAY. WILL CONTINUE TO MONITOR AND FOLLOW WITH POC
--- NOTE | 2020-07-13 09:46 | CATHLAB ---
[facility] [place] [address] INVASIVE PROCEDURE REPORT Name: DONOVAN SAMUEL Room #: 208-P ADM IN M.R.#: [id number] Admission: 07/11/20 Attend Phys: Piedad Slater MD Discharge: Date of : 33 Report #: [id number] THIS REPORT FOR: cc: FAM - Family physician unknown FAM - Family physician unknown Doni Metz MD [facility] ~ APPROVED REPORT Study performed: 07/13/2020 07:29:28 Patient Details Patient Status: In-Patient Room #: The patient is a 85 year-old female Event Personnel Doni Metz Wine Pasteurizer, Dotty Juarez RTR Monitor, Diane Beard RN RN, Jennifer Paris Scrub Procedures Performed Art Access - R femoral artery* Coronaries Angiography and Bypass Grafts 079837 CORCA Aortogram Abdominal Peripheral Angio 486236 Hemostasis with Manual pressure 60261 Initial Mod Sed Same Phys/QHP Gr 635142 96422 Mod Sed Same Phys/QHP Ea 149654 Procedure Narrative The Right Groin^ was infiltrated with 1% Lidocaine subcutaneous anesthesia. A PINNACLE 6FR Sheath #[id number] sheath was inserted into the RFA^. Coronary angiography was performed using coronary diagnostic catheters. The right coronary system was accessed and visualized with a JR4 catheter. The left coronary system was accessed and visualized with a JL4 catheter. Hemostasis was obtained with manual pressure following sheath removal without any complications. The patient tolerated the procedure well and there were no complications associated with the procedure. There was no hematoma. A root angio was performed. The following grafts were viewed: KELLEY, Radial to OM, SVG to RCA. Intraoperative Conscious Sedation Sedation start time: 8:16 Case end Time: 9:08 Fentanyl 50 mcg Versed 1 mg Fluoro Time: 9.20 minutes Dose: DAP 5019.70 cGycm2 646 mGy [facility] [place] [address] INVASIVE PROCEDURE REPORT Name: DONOVAN SAMUEL Room #: 208-P [facility] IN ..#: [id number] Admission: 07/11/20 Attend Phys: Paty Mondragon Discharge: Date of : 34 Report #: [id number] Contrast Type and Amount: Omnipaque 190 ml Coronary Angiography The patient's coronary anatomy is right dominant. [place] Artery Percent Stenosis Aortography demonstrated a calcified and stenotic aortic valve. Normal caliber ascending aorta No aortic insufficiency. Diagnostic Cath Left Main Critical 99% densely calcified stenosis LAD Occluded proximal/mid LAD Widely patent left internal mammary to the LAD with excellent runoff into a large LAD system. Circumflex Occluded proximal circumflex OM1 Subtotally occluded bifurcating OM1 Tiny, diffusely diseased radial conduit to OM branch OM branch would not be approachable percutaneously through the left main and occluded proximal circumflex L PDA Normal posterior descending L JEREMY Normal posterior lateral Right Coronary Dominant right coronary, heavily calcified, occluded in its midportion. Widely patent vein graft from the aorta to the distal right coronary with excellent runoff Ramus Moderate sized ramus branch filled by both antegrade filling and retrograde filling from the LAD Hemodynamics The aortic pressure is 110/63 mmHg with a mean of 82 mmHg. Conclusion 1. Calcified, stenotic aortic valve. See echocardiography. Normal caliber ascending aorta 2. Severe multivessel coronary disease 3. Widely patent left internal mammary to the LAD 4. Widely patent SVG to RCA 5. Subtotally occluded radial conduit to OM1 <ELECTRONICALLY SIGNED> By: Doni Metz MD, FACC 07/13/20945 5 5 Doni Metz MD, FACC /INF
--- NOTE | 2020-07-13 17:45 | NUR ---
PT CARE ASSUMED AT 0700. ASSESSMENTS CHARTED. MEDICATIONS CHARTED. RFA IV. VENTRICULAR PACED. 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 RT GROIN; NO CLOSURE DEVICE, MANUAL PRESSURE; 6 HOUR BEDREST; NO INTERVENTION. HEMOSTASIS 0908; BEDREST UNTIL 1508. RT GROIN BLEED OCCURED AT 1030; HELD PRESSURE UNTIL STICKER MACHINE OPERATOR RN ARRIVED AND TOOK OVER. NEW BANDAGE PLACED, C/D/I. PACEMAKER.
[2020-07-14 03:40] VITALS: BP 118/75
[2020-07-14 03:59] LABS: CALCIUM 8.8 mg/dL (8.5-10.1); CREATININE 0.8 mg/dL (0.6-1.0); POTASSIUM 4.7 mmol/L (3.5-5.1)
--- NOTE | 2020-07-14 04:14 | NUR ---
ASSUME CARE 1900. PT DENIES ANY PAIN AT THIS TIME. PT STABLE. BP RUNS SOFT. HELD METOPROLOL D/T LOW BP. EXCELLENT ENDURANCE TO ACTIVITY. ASSESSMENT CHARTED. PROGRESSING WELL WITH POC. DIAGNOSTIC CATH 07/13/20 WITH MULTIVESSEL DISEASE NOTED. WILL CONTINUE TO MONITOR AND FOLLOW WITH POC
[2020-07-14 07:00] VITALS: BP 113/78
[2020-07-14] MEDS ORDERED: IMDUR 30 MG TAB30 M1 PO (07:42)
[2020-07-14] MEDS ORDERED: LASIX 20 MG TAB20 MG PO (07:42)
[2020-07-14] MEDS ORDERED: RANOLAZINE ER500 MG PO (07:42)
--- NOTE | 2020-07-14 08:36 | 2DMMODE ---
[facility] [place] [address] 2 D/M-MODE ECHOCARDIOGRAM Name: DONOAVN SAMUEL ANN Room #: 208-P ADM IN M.R.#: [id number] Admission: 07/11/20 Attend Phys: Piedad Slater MD Discharge: Date of : 34 Report #: [id number] THIS REPORT FOR: cc: FAM - Family physician unknown FAM - Family physician unknown Doni Metz MD [facility] ~ APPROVED REPORT Study performed: 07/11/2020 10:32:35 EXAM: Comprehensive 2D, Doppler, and color-flow Echocardiogram Patient Location: Bedside Room #: 208 Status: routine BSA: 1.66 HR: 95 bpm BP: 135/72 mmHg Rhythm: Pacemaker Other Information Study Quality: Good Indications Chest pain, SOA, elevated BNP, NSTEMI. Hx: CABG, stent, Pacer, DM, HTN, tob. 2D Dimensions RVDd: 37.58 mm IVSd: 11.34 (7-11mm) LVOT Diam: 19.74 (18-24mm) LVDd: 48.12 mm PWd: 11.54 (7-11mm) LVDs: 43.07 (25-40mm) Left Atrium: 40.31 (27-40mm) Aortic Root: 34.53 mm Volumes Left Atrial Volume (Systole) Single Plane 4CH: 51.33 mL Single Plane 2CH: 56.98 mL LA ESV Index: 35.00 mL/m2 Aortic Valve AoV Peak Ashvin.: 4.10 m/s AO Peak Gr.: 67.30 mmHg LVOT Max P.78 mmHg AO Mean Gr.: 38.07 mmHg [facility] [address] [address] 2 D/M-MODE ECHOCARDIOGRAM Name: DONOVAN SAMUEL Room #: 208-P [facility] IN ..#: [id number] Admission: 07/11/20 Attend Phys: Paty Mondragon Discharge: Date of : 34 Report #: [id number] AO V2 Mean: 2.93 m/s LVOT Max V: 0.83 m/s AO V2 VTI: 78.16 cm MARINE Vmax: 0.62 cm2 Mitral Valve E/A Ratio: 1.1 MV Decel. Time: 146.56 ms MV E Max Ashvin.: 1.26 m/s MV A Ashvin.: 1.19 m/s MV PHT: 42.50 ms IVRT: 66.90 ms Pulmonary Valve PV Peak Ashvin.: 1.53 m/s PV Peak Gr.: 9.30 mmHg Pulmonary Vein P Vein S: 0.39 m/s P Vein D: 0.73 m/s P Vein S/D Ratio: 0.53 Tricuspid Valve TR Peak Ashvin.: 3.61 m/s RAP Estimate: 10.00 mmHg TR Peak Gr.: 52.00 mmHg PA Pressure: 62.00 mmHg Left Ventricle The left ventricle is normal size. There is global hypokinesis of the left ventricle. There is normal left ventricular wall thickness. Left ventricular systolic function is severely decreased. LVEF is 25-30%. Discordant septal motion possibly from RV pacing The left ventricular diastolic function is abnormal. Right Ventricle The right ventricle is normal size. Right ventricle is mildly hypokinetic. Atria Left atrium is mildly dilated. The right atrium size is normal. Pacemaker lead is present in the right atrium. Aortic Valve Aortic valve is heavily calcified, severely stenotic. No aortic regurgitation is present. Calculated aortic valve area is 0.6 cm2 (Peak gradient of 67 mmHg, mean pressure gradient of 38 mmHg). [facility] [address] [place] [address] 2 D/M-MODE ECHOCARDIOGRAM Name: TEQUILALEONARDODONOVAN Room #: 208-P [facility] IN .R.#: [id number] Admission: 07/11/20 Attend Phys: Paty Mondragon Discharge: Date of : 34 Report #: [id number] Mitral Valve Moderate mitral annular calcification. Mildly calcified leaflets Moderate mitral regurgitation. No evidence of mitral valve stenosis. Tricuspid Valve The tricuspid valve is normal in structure. Moderate to severe tricuspid regurgitation. Estimated PAP is 60mmHg. Pulmonic Valve Trace pulmonic regurgitation. Great Vessels The aortic root is normal in size. IVC is dilated and collapses >50% with inspiration. Pericardium There is no pericardial effusion. Bilateral pleural effusions noted. <Conclusion> Left ventricular systolic function is severely decreased. LVEF is 25-30%. Discordant septal motion possibly from RV pacing Left atrium is mildly dilated. Aortic valve is heavily calcified, severely stenotic. No aortic insufficiency Calculated aortic valve area is 0.6 cm2 (Peak gradient of 67 mmHg, mean pressure gradient of 38 mmHg). Moderate mitral annular calcification. Mildly calcified leaflets. Moderate mitral regurgitation. Moderate to severe tricuspid regurgitation. Estimated pulmonary artery pressure of 60mmHg. There is no pericardial effusion. <ELECTRONICALLY SIGNED> By: Doni Metz MD, FACC 07/11/20 121 121 10 Doni Metz MD, FACC /INF
--- NOTE | 2020-07-14 08:51 | 2DMMODE ---
[facility] [place] [address] 2 D/M-MODE ECHOCARDIOGRAM Name: DONOVAN SAMUEL ANN Room #: 208-P ADM IN M.R.#: [id number] Admission: 07/11/20 Attend Phys: Piedad Slater MD Discharge: Date of : 34 Report #: [id number] THIS REPORT FOR: cc: FAM - Family physician unknown FAM - Family physician unknown Doni Metz MD [facility] Doni Metz MD [facility] ~ Sex/Age : F/85Y Height/Weight : 165.1cm/59.9kg Patient Name : DONOVAN SAMUEL Study Date : 2020-07-11 BSA : 1.66? Requesting Name : ECHO COMPLETE Date of : 1935 Request Doctor : DONI METZ Department : CARD --< Approved Report > Study performed: 07/11/2020 10:32:35 EXAM: Comprehensive 2D, Doppler, and color-flow Echocardiogram Patient Location: Bedside Room #: 208 Status: routine BSA: 1.66 HR: 95 bpm BP: 135/72 mmHg Rhythm: Pacemaker Other Information Study Quality: Good Indications Chest pain, SOA, elevated BNP, NSTEMI. Hx: CABG, stent, Pacer, DM, HTN, tob. 2D Dimensions RVDd: 37.58 mm IVSd: 11.34 (7~11mm) LVOT Diam: 19.74 (18~24mm) LVDd: 48.12 mm PWd: 11.54 (7~11mm) LVDs: 43.07 (25~40mm) Left Atrium: 40.31 (27~40mm) Aortic Root: 34.53 mm [facility] [address] [place] [address] 2 D/M-MODE ECHOCARDIOGRAM Name: DONOVAN SAMUEL Room #: 208-P [facility] IN [facility].#: [id number] Admission: 07/11/20 Attend Phys: Paty Mondragon Discharge: Date of : 33 Report #: [id number] Volumes Left Atrial Volume (Systole) Single Plane 4CH: 51.33 mL Single Plane 2CH: 56.98 mL LA ESV Index: 35.00 mL/m2 Aortic Valve AoV Peak Ashvin.: 4.10 m/s AO Peak Gr.: 67.30 mmHg LVOT Max P.78 mmHg AO Mean Gr.: 38.07 mmHg AO V2 Mean: 2.93 m/s LVOT Max V: 0.83 m/s AO V2 VTI: 78.16 cm MARINE Vmax: 0.62 cm2 Mitral Valve E/A Ratio: 1.1 MV Decel. Time: 146.56 ms MV E Max Ashvin.: 1.26 m/s MV A Ashvin.: 1.19 m/s MV PHT: 42.50 ms IVRT: 66.90 ms Pulmonary Valve PV Peak Ashvin.: 1.53 m/s PV Peak Gr.: 9.30 mmHg Pulmonary Vein P Vein S: 0.39 m/s P Vein D: 0.73 m/s P Vein S/D Ratio: 0.53 Tricuspid Valve TR Peak Ashvin.: 3.61 m/s RAP Estimate: 10.00 mmHg TR Peak Gr.: 52.00 mmHg PA Pressure: 62.00 mmHg Left Ventricle The left ventricle is normal size. There is global hypokinesis of the left ventricle. There is normal left ventricular wall thickness. Left ventricular systolic function is severely decreased. LVEF is 25-30%. Discordant septal motion possibly from RV pacing The left ventricular diastolic function is abnormal. Right Ventricle The right ventricle is normal size. Right ventricle is mildly hypokinetic. Atria Left atrium is mildly dilated. The right atrium size is normal. Pacemaker lead [facility] [address] [place] [address] 2 D/M-MODE ECHOCARDIOGRAM Name: DONOVAN SAMUEL Room #: 208-P [facility] IN [facility]#: [id number] Admission: 07/11/20 Attend Phys: Paty Mondragon Discharge: Date of : 34 Report #: [id number] is present in the right atrium. Aortic Valve Aortic valve is heavily calcified, severely stenotic. No aortic regurgitation is present. Calculated aortic valve area is 0.6 cm2 (Peak gradient of 67 mmHg, mean pressure gradient of 38 mmHg). Mitral Valve Moderate mitral annular calcification. Mildly calcified leaflets Moderate mitral regurgitation. No evidence of mitral valve stenosis. Tricuspid Valve The tricuspid valve is normal in structure. Moderate to severe tricuspid regurgitation. Estimated PAP is 60mmHg. Pulmonic Valve Trace pulmonic regurgitation. Great Vessels The aortic root is normal in size. IVC is dilated and collapses >50% with inspiration. Pericardium There is no pericardial effusion. Bilateral pleural effusions noted. <Conclusion> Left ventricular systolic function is severely decreased. LVEF is 25-30%. Discordant septal motion possibly from RV pacing Left atrium is mildly dilated. Aortic valve is heavily calcified, severely stenotic. No aortic insufficiency Calculated aortic valve area is 0.6 cm2 (Peak gradient of 67 mmHg, mean pressure gradient of 38 mmHg). Moderate mitral annular calcification. Mildly calcified leaflets. Moderate mitral regurgitation. Moderate to severe tricuspid regurgitation. Estimated pulmonary artery pressure of 60mmHg. There is no pericardial effusion. Electronically Approved : 07/14/2020 08:37:27 By: [id number] Doni Metz MD, FACC /
[2020-07-14] MEDS ORDERED: PEPCID20 MG PO (10:54)
[2020-07-14] MEDS ORDERED: ALBUTEROL2.5 MG/0.1 INH (10:54)
[2020-07-14] MEDS ORDERED: DOXYCYCLINE HYC50 MG PO (10:54)
[2020-07-14 11:23] VITALS: BP 113/78
[2020-07-14 12:12] VITALS: BP 101/64
[2020-07-14 12:13] VITALS: BP 107/54
--- NOTE | 2020-07-14 13:34 | NUR ---
ASSESSMENT CHARTED - MEDS PER CHANG GOMEZ DIET AND FLUIDS. NO CO'S OF PAIN OR NASUEA. UP AD NICOLASA IN ROOM. PT HOME THIS AFTERNOON - INSTRUCTION RE HOME MEDS. CARE AND FOLLOW UP GIVEN TO PT INCLUDING GROIN SITE CARE. STATED UNDERSTANDING OF INSTRUCTION GIVEN. NO CO'S AT TIME OF D/C. LEFT UNIT VIA WHEELCHAIR - HOME ACCOMPAINIED BY DAUGHTER - VIA PVT VEHICLE.
== END 2020-07-14 13:31 | disposition home or self-care (01) | DRG 286 ==
LOC: ER 06:39 → 2N 10:06 → EROBS 10:06 → 2N 10:40
PROVIDERS: Emergency Medicine; Internal Medicine; Nurse Practitioner; ADMIT Hospitalist; ATTEND Hospitalist
DX: I25.110 Atherosclerotic heart disease of native coronary artery with unstable angina pectoris (principal); I50.23 Acute on chronic systolic (congestive) heart failure; J96.01 Acute respiratory failure with hypoxia; J18.9 Pneumonia, unspecified organism; D68.59 Other primary thrombophilia; R13.10 Dysphagia, unspecified; E87.70 Fluid overload, unspecified; E11.9 Type 2 diabetes mellitus without complications; E78.5 Hyperlipidemia, unspecified; I49.5 Sick sinus syndrome; I48.0 Paroxysmal atrial fibrillation; I65.29 Occlusion and stenosis of unspecified carotid artery; I35.0 Nonrheumatic aortic (valve) stenosis; Z60.2 Problems related to living alone; E78.00 Pure hypercholesterolemia, unspecified; I45.9 Conduction disorder, unspecified; R53.81 Other malaise; G47.00 Insomnia, unspecified; I11.0 Hypertensive heart disease with heart failure; R59.9 Enlarged lymph nodes, unspecified; Z90.49 Acquired absence of other specified parts of digestive tract; Z95.5 Presence of coronary angioplasty implant and graft; Z98.49 Cataract extraction status, unspecified eye; Z88.0 Allergy status to penicillin; Z95.1 Presence of aortocoronary bypass graft; Z95.0 Presence of cardiac pacemaker; Z87.891 Personal history of nicotine dependence; Z79.82 Long term (current) use of aspirin; Z79.899 Other long term (current) drug therapy; Z82.49 Family history of ischemic heart disease and other diseases of the circulatory system; Z98.42 Cataract extraction status, left eye; Z98.41 Cataract extraction status, right eye
CPT/HCPCS: 10081